=== PATIENT | female | born 1945 | race African-American/Black ===

== ENCOUNTER 2022-05-10 14:57 | Outpatient (CLI) | payer MEDICARE | END 2022-05-10 14:58 | disposition home or self-care (01) | LOC: SCSMRI 14:57 | PROVIDERS: ATTEND Nurse Practitioner Family | DX: R03.0 Elevated blood-pressure reading, without diagnosis of hypertension (principal); R41.3 Other amnesia; R68.89 Other general symptoms and signs | CPT/HCPCS: 70551 ==